=== PATIENT | female | born 1980 | race Caucasian/White ===

== ENCOUNTER 2017-12-20 12:32 | Emergency (ER) | payer MEDICAID ==
[~2017-12-20] VITALS: Ht 170.2 cm; Wt 90.9 kg
[2017-12-20 12:38] VITALS: Ht 170.2 cm; Wt 90.9 kg
[2017-12-20] MEDS ORDERED: EC-NAPROSYN500 MG PO (13:36)
[2017-12-20] MEDS ORDERED: PENICILLIN V P500 MG PO (13:36)
[2017-12-20 14:05] VITALS: BP 126/79
== END 2017-12-20 14:05 | disposition home or self-care (01) ==
LOC: D.ER 12:32
DX: K08.89 Other specified disorders of teeth and supporting structures (principal); K02.9 Dental caries, unspecified; F17.200 Nicotine dependence, unspecified, uncomplicated

== ENCOUNTER 2018-01-20 08:54 | Emergency (ER) | payer MEDICAID ==
[~2018-01-20] VITALS: Ht 170.2 cm; Wt 95.5 kg
[~2018-01-20 08:54] MED LIST: EC-NAPROSYN500 MG PO; PENICILLIN V P500 MG PO
[2018-01-20 09:05] VITALS: Ht 170.2 cm; Wt 95.5 kg
[2018-01-20] MEDS ORDERED: ZPAK PO (10:45)
[2018-01-20] MEDS ORDERED: MEDROL DOSE PACK4 MG PO (10:45)
[2018-01-20 11:32] VITALS: BP 117/56
== END 2018-01-20 11:31 | disposition home or self-care (01) ==
LOC: D.ER 08:54
DX: J06.9 Acute upper respiratory infection, unspecified (principal); R05 Cough; R09.89 Other specified symptoms and signs involving the circulatory and respiratory systems; F17.200 Nicotine dependence, unspecified, uncomplicated

== ENCOUNTER 2018-02-27 13:31 | Emergency (ER) | payer SELFPAY | END 2018-02-27 15:20 | disposition home or self-care (01) | LOC: D.ER 13:31 | DX: M25.562 Pain in left knee (principal); M25.561 Pain in right knee; R22.43 Localized swelling, mass and lump, lower limb, bilateral ==